=== PATIENT | female | born 1955 | race American Indian/Alaskan Native ===

== ENCOUNTER 2018-03-11 09:31 | Outpatient (CLI) | payer OTHER ==
--- NOTE | 2018-03-11 22:36 | XRay Report ---
FINAL REPORT EXAM: XR KNEE BILAT 4+V HISTORY: BILATERAL KNEE PAIN TECHNIQUE: Four views of the bilateral knees, 8 views total PRIORS: None. FINDINGS: Right knee: There is a prosthesis in place. Alignment is anatomic. There is no evidence of hardware complication or acute fracture. The bones are demineralized. The soft tissues are unremarkable. Left knee: There is a prosthesis in place. Alignment is anatomic. There is no evidence of hardware complication or acute fracture. The bones are demineralized. The soft tissues are unremarkable. IMPRESSION: Bilateral knee prostheses. Anatomic alignment. No evidence of fracture or hardware complication
== END 2018-03-11 09:32 | disposition home or self-care (01) ==
LOC: SPVIMAG 09:31
PROVIDERS: ATTEND Orthopaedic Surgery Sports Medicine
DX: M25.561 Pain in right knee (principal); M25.562 Pain in left knee; Z96.653 Presence of artificial knee joint, bilateral